=== PATIENT | female | born 1975 | race Caucasian/White ===

== ENCOUNTER 2020-07-10 13:59 | Emergency (ER) | payer BC ==
--- NOTE | 2020-07-10 14:33 | EDM.PDOC ---
ED HPI GENERAL MEDICAL PROBLEM - General Chief Complaint: Upper Extremity Injury/Pain Stated Complaint: RT ARM PAIN Time Seen by Provider: 07/10/20 14:04 Source of Information: Reports: Patient History Limitations: Reports: No Limitations - History of Present Illness INITIAL COMMENTS - FREE TEXT/NARRATIVE: Patient is a 44-year-old female who presents today for right elbow pain. Patient dates for the past few weeks has had this elbow pain that shoots up to her hand and makes her hand tingling and painful. Patient denies any injury to the arm. 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 Patient also noticed that her right arm has been swollen at times. Patient that she saw her PMD for this before in the past and was not sure what he failed because of it. Patient currently denies any chest pain shortness of breath fever chills or other complaints. Right arm Pain Score (Numeric/FACES): 5 - Related Data Allergies Allergy/AdvReac Type Severity Reaction Status Date / Time No Known Allergies Allergy Verified 07/10/20 14:16 Home Meds: Home Meds Bipolar? 07/10/20 [History] Htn? 07/10/20 [History] Past Medical History - Past Health History Medical/Surgical History: Denies Medical/Surgical History Cardiovascular History: Reports: Hypertension - Infectious Disease History Infectious Disease History: Reports: None Social & Family History - Family History Family Medical History: No Pertinent Family History - Caffeine Use Caffeine Use: Reports: None - Recreational Drug Use Recreational Drug Use: No Review of Systems - Review of Systems Review Of Systems: See Below Constitutional: Reports: No Symptoms Eyes: Reports: No Symptoms Ears: Reports: No Symptoms Nose: Reports: No Symptoms Mouth/Throat: Reports: No Symptoms Respiratory: Reports: No Symptoms Cardiovascular: Reports: No Symptoms GI/Abdominal: Reports: No Symptoms Genitourinary: Reports: No Symptoms Musculoskeletal: Reports: Arm Pain Skin: Reports: No Symptoms Neurological: Reports: No Symptoms Psychiatric: Reports: No Symptoms ED EXAM, GENERAL - Physical Exam Exam: See Below Exam Limited By: No Limitations General Appearance: Alert, WD/WN Eye Exam: Bilateral Eye: EOMI, PERRL Respiratory/Chest: No Respiratory Distress, Lungs Clear, Normal Breath Sounds Cardiovascular: Normal Peripheral Pulses, Regular Rate, Rhythm GI/Abdominal: Normal Bowel Sounds, Soft, Non-Tender Extremities: Normal Inspection, Normal Range of Motion. No: Non-Tender (tenderness to medial condyle ) Neurological: Alert, Oriented Course - Vital Signs Last Recorded V/S: Last Vital Signs Temp 97.3 F 07/10/20 14:16 Pulse 103 H 07/10/20 14:16 Resp 16 07/10/20 14:16 BP 184/115 H 07/10/20 14:16 Pulse Ox 98 07/10/20 14:16 - Orders/Labs/Meds Orders: Active Orders 24 hr Category Date Time Status BASIC METABOLIC PANEL,BMP [CHEM] Stat Lab 07/10/20 14:28 Ordered CBC WITH AUTO DIFF [HEME] Stat Lab 07/10/20 14:28 Ordered - Re-Assessments/Exams Free Text/Narrative Re-Assessment/Exam: 07/10/20 16:02 Patient refused lab work however DVT study is negative as well as x-ray does not show any mass no clear cause was called and the patient right extremity swelling. Patient remained stable vital signs looks well we will discharge patient have a follow-up primary care physician. Departure - Departure Time of Disposition: 16:02 Disposition: Home, Self-Care 01 Condition: Good Clinical Impression: Arm swelling - Discharge Information *PRESCRIPTION DRUG MONITORING PROGRAM REVIEWED*: Not Applicable *COPY OF PRESCRIPTION DRUG MONITORING REPORT IN PATIENT LE: Not Applicable Instructions: Pain Medicine Instructions, [id number] Referrals: PCP,None [Primary Care Provider] - Forms: ED Department Discharge Additional Instructions: The following information is given to patients seen in the emergency department who are being discharged to home. This information is to outline your options for follow-up care. We provide all patients seen in our emergency department with a follow-up referral. The need for follow-up, as well as the timing and circumstances, are variable depending upon the specifics of your emergency department visit. If you don't have a primary care physician on staff, we will provide you with a referral. We always advise you to contact your personal physician following an emergency department visit to inform them of the circumstance of the visit and for follow-up with them and/or the need for any referrals to a consulting sp ecialist. The emergency department will also refer you to a specialist when appropriate. This referral assures that you have the opportunity for follow-up care with a specialist. All of these measure are taken in an effort to provide you with optimal care, which includes your follow-up. Under all circumstances we always encourage you to contact your private physician who remains a resource for coordinating your care. When calling for follow-up care, please make the office aware that this follow-up is from your recent emergency room visit. If for any reason you are refused follow-up, please contact the [facility] Emergency Department at and asked to speak to the emergency department charge nurse. Please follow up with your primary care physician. If you do not have a primary care physician, see below: [facility] [address] [place] [id number] [address] [facility] [address] [place] [address] You were seen today for swelling to your right arm we did a study looking for clot that did not show any clots we also did x-rays not show any fractures or cause of your pain and swelling to your arm at this time you are stable. Vital signs we recommend you follow-up with your primary care physician if you have any other complaints please return to the ED immediately. Sepsis Event Note (ED) - Evaluation Sepsis Screening Result: No Definite Risk - Focused Exam Vital Signs: Vital Signs Temp Pulse Resp BP Pulse Ox 07/10/20 14:16 97.3 F 103 H 16 184/115 H 98 - My Orders Last 24 Hours: My Active Orders 07/10/20 14:28 BASIC METABOLIC PANEL,BMP [CHEM] Stat CBC WITH AUTO DIFF [HEME] Stat - Assessment/Plan Last 24 Hours: My Active Orders 07/10/20 14:28 BASIC METABOLIC PANEL,BMP [CHEM] Stat CBC WITH AUTO DIFF [HEME] Stat Plan: Patient is a 44-year-old female presents today for right arm swelling and pain. Unclear cause will obtain x-ray and ultrasound rule out DVT.
--- NOTE | 2020-07-10 15:46 | CR ---
Indication: Right elbow pain with radiation down arm Technique: Three views right elbow Comparison: None Findings: Bones: Alignment is normal. No fractures or bone lesions. Joint spaces: Unremarkable. Soft tissues: Unremarkable. Impression: Negative. Dictated by Rocio Zabala MD @ Jul 10 2020 3:43PM Signed by Dr. Rocio Zabala @ Jul 10 2020 3:45PM
--- NOTE | 2020-07-10 15:48 | US ---
CLINICAL HISTORY: 44-year-old with right upper extremity pain and swelling. TECHNIQUE: Grayscale, color Doppler and compression sonography of the deep venous system of the right upper extremity was performed. COMPARISON: None available FINDINGS: The right internal jugular, axillary and paired brachial veins are patent with color flow, compressibility, and respiratory variation. The right subclavian vein is patent with color flow and respiratory variation. There is no intraluminal echogenic material within these veins to suggest thrombus. The basilic and cephalic veins are patent and compressible. IMPRESSION: No sonographic evidence for deep or superficial venous thrombosis within the right upper extremity. Dictated by Phil Vásquez MD @ Jul 10 2020 3:44PM Signed by Dr. Phil Vásquez @ Jul 10 2020 3:46PM
--- NOTE | 2020-07-10 15:48 | CR ---
INDICATION: Left-sided swelling. TECHNIQUE: PA and lateral. COMPARISON: None. FINDINGS: Shallow inspiration with subsegmental atelectasis or scarring in both lung bases. No airspace infiltrate. No pleural effusion. Pulmonary venous congestion. Heart size normal. No significant bony abnormality. IMPRESSION: 1. Shallow inspiration with subsegmental atelectasis or scarring in both bases. 2. Pulmonary venous congestion. Dictated by Salvador Uribe MD @ Jul 10 2020 3:42PM Signed by Dr. Salvador Uribe @ Jul 10 2020 3:45PM
[2020-07-10 16:27] VITALS: BP 180/105; PULSE 93
== END 2020-07-10 16:27 | disposition home or self-care (01) ==
LOC: MW.ED 13:59
DX: R22.31 Localized swelling, mass and lump, right upper limb (principal); I10 Essential (primary) hypertension
CPT/HCPCS: 71046; 71046-26; 73080-26-RT; 73080-RT; 93971-26-RT; 93971-RT; 99284-25

== ENCOUNTER 2020-11-30 17:29 | Emergency (ER) | payer BC ==
[2020-11-30 17:48] VITALS: BP 189/106; PULSE 95
[2020-11-30] MEDS ORDERED: Acetaminophen/oxyCODONE 325-5 MG Tab PO ONE (18:34)
[2020-11-30] MEDS ORDERED: Dexamethasone 10 MG/ML SDV IM STA (18:34)
--- NOTE | 2020-11-30 18:35 | EDM.PDOC ---
ED HPI GENERAL MEDICAL PROBLEM - General Chief Complaint: Upper Extremity Injury/Pain Stated Complaint: RT ARM PAIN Time Seen by Provider: 11/30/20 18:23 Source of Information: Reports: Patient History Limitations: Reports: No Limitations - History of Present Illness INITIAL COMMENTS - FREE TEXT/NARRATIVE: 45-year-old female no relevant past medical history presents for 2 months of worsening pain in her right elbow radiating down the arm into her right fifth and fourth digits. Symptoms are waxing and waning over the last 2 months and worsening over the last day. No history of injury to the area. "It feels like I hit my funny bone all the time". Right Elbow Pain Score (Numeric/FACES): 8 - Related Data Allergies Allergy/AdvReac Type Severity Reaction Status Date / Time No Known Allergies Allergy Verified 07/10/20 14:16 Home Meds: Home Meds Bipolar? 07/10/20 [History] Htn? 07/10/20 [History] HCTZ/Triamterene [Dyazide 25-37.5 MG] 11/30/20 [History] Past Medical History - Past Health History Medical/Surgical History: Denies Medical/Surgical History Cardiovascular History: Reports: Hypertension - Infectious Disease History Infectious Disease History: Reports: None Social & Family History - Family History Family Medical History: No Pertinent Family History - Caffeine Use Caffeine Use: Reports: None Review of Systems - Review of Systems Review Of Systems: Comprehensive ROS is negative, except as noted in HPI. ED EXAM, GENERAL - Physical Exam Exam: See Below Exam Limited By: No Limitations General Appearance: Alert, WD/WN, No Apparent Distress Throat/Mouth: Normal Voice, No Airway Compromise Head: Atraumatic, Normocephalic Neck: Normal Inspection Respiratory/Chest: No Respiratory Distress, No Accessory Muscle Use Cardiovascular: Normal Peripheral Pulses, Regular Rate, Rhythm Extremities: Other (+tinnel's sign R elbow) Neurological: Alert, Normal Cognition, Normal Gait Psychiatric: Normal Affect, Normal Mood Skin Exam: Warm, Dry, Intact, Normal Color Course - Vital Signs Last Recorded V/S: Last Vital Signs Temp 97 F 11/30/20 17:36 Pulse 95 11/30/20 17:36 Resp 18 11/30/20 17:36 BP 189/106 H 11/30/20 17:36 Pulse Ox 96 11/30/20 17:36 - Orders/Labs/Meds Meds: Medications Discontinued Medications Generic Name Dose Route Start Last Admin Trade Name Alicia PRN Reason Stop Dose Admin Dexamethasone 6 mg 11/30/20 18:34 Dexamethasone 10 Mg/Ml Sdv IM 11/30/20 18:35 STAT STA Oxycodone/Acetaminophen 1 tab 11/30/20 18:34 Acetaminophen/Oxycodone 325-5 Mg Tab PO 11/30/20 18:35 ONETIME ONE - Re-Assessments/Exams Free Text/Narrative Re-Assessment/Exam: 11/30/20 18:38 Patient symptoms are suggestive of cubital tunnel syndrome. Will give anti- inflammatory and pain medication. Will refer to orthopedics for further work- up. Departure - Departure Time of Disposition: 18:34 Disposition: Home, Self-Care 01 Condition: Good Clinical Impression: Cubital tunnel syndrome on right - Discharge Information Instructions: Cubital Tunnel Syndrome Referrals: PCP,None [Primary Care Provider] - Forms: ED Department Discharge Additional Instructions: Please follow-up with orthopedics, you have been placed on a follow-up list how ever if you want you can call below and make an appointment as well. [facility] [address], [address] [place] [address] The following information is given to patients seen in the emergency department who are being discharged to home. This information is to outline your options for follow-up care. We provide all patients seen in our emergency department with a follow-up referral. The need for follow-up, as well as the timing and circumstances, are variable depending upon the specifics of your emergency department visit. If you don't have a primary care physician on staff, we will provide you with a referral. We always advise you to contact your personal physician following an emergency department visit to inform them of the circumstance of the visit and for follow-up with them and/or the need for any referrals to a consulting specialist. The emergency department will also refer you to a specialist when appropriate. This referral assures that you have the opportunity for follow-up care with a specialist. All of these measure are taken in an effort to provide you with optimal care, which includes your follow-up. Under all circumstances we always encourage you to contact your private physician who remains a resource for coordinating your care. When calling for follow-up care, please make the office aware that this follow-up is from your recent emergency room visit. If for any reason you are refused follow-up, please contact the [facility] Emergency Department at and asked to speak to the emergency department charge nurse. Please follow up with your primary care physician. If you do not have a primary care physician, see below: [facility] [address] [place] [phone] [facility] [address] [place] [address] [facility] [address] [address] Sepsis Event Note (ED) - Focused Exam Vital Signs: Vital Signs Temp Pulse Resp BP Pulse Ox 11/30/20 17:36 97 F 95 18 189/106 H 96
== END 2020-11-30 18:48 | disposition home or self-care (01) ==
LOC: MW.ED 17:29
DX: G56.21 Lesion of ulnar nerve, right upper limb (principal); I10 Essential (primary) hypertension
CPT/HCPCS: 96372; 99283; A9270; J1100

== ENCOUNTER 2020-12-04 08:03 | Emergency (ER) | payer BC ==
[2020-12-04] MEDS ORDERED: Acetaminophen/oxyCODONE 325-5 MG Tab PO ONE (08:07)
[2020-12-04] MEDS ORDERED: Dexamethasone 10 MG/ML SDV IM STA (08:07)
--- NOTE | 2020-12-04 08:13 | EDM.PDOC ---
ED HPI GENERAL MEDICAL PROBLEM - General Stated Complaint: cubital tunnel syndroms Time Seen by Provider: 12/04/20 08:07 Source of Information: Reports: Patient History Limitations: Reports: No Limitations - History of Present Illness INITIAL COMMENTS - FREE TEXT/NARRATIVE: 45F PMHx R elbow pain presumptive diagnosis cubital tunnel syndrome presents for RUE pain. Patient was seen a few days prior for similar symptoms. She noted improvement after analgesia and decadron but symptoms have returned. She was placed on orthopedic f/u list. Patient noted a lot of relief for first 3 days after decadron injection but now is having worsening symptoms. - Related Data Allergies Allergy/AdvReac Type Severity Reaction Status Date / Time No Known Allergies Allergy Verified 07/10/20 14:16 Home Meds: Home Meds Bipolar? 07/10/20 [History] Htn? 07/10/20 [History] HCTZ/Triamterene [Dyazide 25-37.5 MG] 11/30/20 [History] Ibuprofen [Motrin] 600 mg PO Q6H PRN #20 tab 11/30/20 [Rx] Acetaminophen/oxyCODONE [Percocet 325-5 MG] 1 each PO Q4H PRN #18 tab 12/04/20 [Rx] predniSONE 40 mg PO DAILY 5 Days #10 tab 12/04/20 [Rx] Past Medical History - Past Health History Medical/Surgical History: Denies Medical/Surgical History Cardiovascular History: Reports: Hypertension - Infectious Disease History Infectious Disease History: Reports: None Social & Family History - Family History Family Medical History: No Pertinent Family History - Caffeine Use Caffeine Use: Reports: None ED ROS GENERAL - Review of Systems Review Of Systems: Comprehensive ROS is negative, except as noted in HPI. ED EXAM, GENERAL - Physical Exam Exam: See Below Exam Limited By: No Limitations General Appearance: Alert, WD/WN, No Apparent Distress Ears: Hearing Grossly Normal Throat/Mouth: Normal Voice, No Airway Compromise Head: Atraumatic, Normocephalic Neck: Normal Inspection Respiratory/Chest: No Respiratory Distress, Lungs Clear, Normal Breath Sounds, No Accessory Muscle Use Cardiovascular: Normal Peripheral Pulses, Regular Rate, Rhythm Extremities: Normal Inspection, Other (positive R elbow tinnel's sign consistent with cubital tunnel syndrome) Neurological: Alert, Normal Cognition, Normal Gait Psychiatric: Normal Affect, Normal Mood Course - Orders/Labs/Meds Meds: Medications Discontinued Medications Generic Name Dose Route Start Last Admin Trade Name Teodoroq PRN Reason Stop Dose Admin Dexamethasone 10 mg 12/04/20 08:07 Dexamethasone 10 Mg/Ml Sdv IM 12/04/20 08:08 STAT STA Oxycodone/Acetaminophen 2 tab 12/04/20 08:07 Acetaminophen/Oxycodone 325-5 Mg Tab PO 12/04/20 08:08 ONETIME ONE - Re-Assessments/Exams Free Text/Narrative Re-Assessment/Exam: 12/04/20 08:12 Will give decadron and percocet for pain; will d/c with short course of analgesi a, prednisone, and orthopedic f/u Departure - Departure Time of Disposition: 08:17 Disposition: Home, Self-Care 01 Condition: Good Clinical Impression: Cubital tunnel syndrome on right - Discharge Information Prescriptions: Acetaminophen/oxyCODONE [Percocet 325-5 MG] 1 each PO Q4H PRN #18 tab PRN Reason: Pain predniSONE 40 mg PO DAILY 5 Days #10 tab Instructions: Cubital Tunnel Syndrome Referrals: PCP,None [Primary Care Provider] - Additional Instructions: Please follow up with orthopedic physician for further testing and definitive diagnosis. [facility] [address], [address] [place] [address] The following information is given to patients seen in the emergency department who are being discharged to home. This information is to outline your options for follow-up care. We provide all patients seen in our emergency department with a follow-up referral. The need for follow-up, as well as the timing and circumstances, are variable depending upon the specifics of your emergency department visit. If you don't have a primary care physician on staff, we will provide you with a referral. We always advise you to contact your personal physician following an emergency department visit to inform them of the circumstance of the visit and for follow-up with them and/or the need for any referrals to a consulting specialist. The emergency department will also refer you to a specialist when appropriate. This referral assures that you have the opportunity for follow-up care with a specialist. All of these measure are taken in an effort to provide you with optimal care, which includes your follow-up. Under all circumstances we always encourage you to contact your private physician who remains a resource for coordinating your care. When calling for follow-up care, please make the office aware that this follow-up is from your recent emergency room visit. If for any reason you are refused follow-up, please contact the [facility] Emergency Department at and asked to speak to the emergency department charge nurse. Please follow up with your primary care physician. If you do not have a primary care physician, see below: [facility] [address] [place] [id number] [facility] [address] [place] [phone] [facility] [address] [place] [id number]
[2020-12-04 08:53] VITALS: BP 115/74; PULSE 85
== END 2020-12-04 08:40 | disposition home or self-care (01) ==
LOC: MW.ED 08:03
DX: G56.21 Lesion of ulnar nerve, right upper limb (principal); I10 Essential (primary) hypertension
CPT/HCPCS: 96372; 99283; A9270; J1100

== ENCOUNTER 2021-02-20 23:28 | Emergency (ER) | payer BC ==
[2021-02-20] MEDS ORDERED: Sodium Chloride 0.9% 10 ML Syringe FLUSH PRN (23:59)
[2021-02-20] MEDS ORDERED: Sodium Chloride 0.9% 2.5 ML Syringe FLUSH PRN (23:59)
[2021-02-21] MEDS ORDERED: Ketorolac 30 MG/ML SDV IVPUSH ONE (00:12)
[2021-02-21] MEDS ORDERED: Ondansetron 4 MG/2 ML SDV IVPUSH ONE (00:12)
[2021-02-21] MEDS ORDERED: Sodium Chloride 0.9% 1,000 ML IV SCH (00:15)
--- NOTE | 2021-02-21 00:18 | EDM.PDOC ---
ED HPI GENERAL MEDICAL PROBLEM - General Chief Complaint: Abdominal Pain Stated Complaint: ABDOMINAL PAIN Time Seen by Provider: 02/20/21 23:33 - History of Present Illness INITIAL COMMENTS - FREE TEXT/NARRATIVE: History of present illness: [] Patient reports abdominal pain in the right upper quadrant and hypogastrium as well as the epigastrium. It is constant and severe. Nothing makes it better or worse. He has had it for 2 or more days. At the onset about 2 or 3 days ago she had facial swelling and ankle edema. She also says her abdomen is bigger than usual. Her bowels however working. She is not vomiting. Her ap petite is diminished. She does not have fever chills or other symptoms. She is never felt like this before. She has had shingles in the past and does not feel like this is the same. Review of systems: As per history of present illness and below otherwise all systems reviewed and negative. Past medical history: As per history of present illness and as reviewed below otherwise noncontributory. Surgical history: As per history of present illness and as reviewed below otherwise noncontributory. Social history: No reported history of drug or alcohol abuse. Family history: As per history of present illness and as reviewed below otherwise noncontributory. Physical exam: Constitutional - well developed, well-nourished and in no acute distress HEENT -patient has a picture from 2 days ago and at that time her face was significantly swollen. This is resolved at this point. Normocephalic, no evidence of trauma - external nose and mouth normal - no mass in neck and no JVD - mucosae moist EYES - full EOM, PERRL, no icterus - no evidence of inflammation, injection, or drainage Respiratory - no respiratory distress, equal bilateral expansion, lungs clear to auscultation and no abnormal lung sounds Cardiovascular - Regular Rhythm with S1 and S2 appreciated and no murmur, gallop or rub. GI -tender diffusely but mostly in the epigastrium and right upper quadrant. Abdomen soft without distension or organomegaly - normal bowel sounds - no guard or rebound Musculoskeletal patient has a picture from 2 days ago and had significant ankle edema at that time. This is apparently resolved-no gross deformity of long bones or joints - no tenderness, swelling or edema Neurologic - Alert and oriented times four - CN II-XII grossly intact - motor sensory and coordination symmetrically normal Psychiatric - appropriate mood and affect with normal thought content Hematologic - No petechiae or purpura - mucosa appropriate color and sclera not pale - normal nail bed color and refill Integument - no rash or evidence of trauma - normal turgor Diagnostics: [] Therapeutics: [] Impression: [] Plan: [] Definitive disposition and diagnosis as appropriate pending reevaluation and review of above. abdomen Pain Score (Numeric/FACES): 7 - Related Data Allergies Allergy/AdvReac Type Severity Reaction Status Date / Time No Known Allergies Allergy Verified 02/20/21 23:51 Home Meds: Home Meds Ondansetron [Zofran ODT] 4 mg PO Q6H PRN #8 tab.dis 02/21/21 [Rx] Past Medical History - Past Health History Medical/Surgical History: Denies Medical/Surgical History Cardiovascular History: Reports: Hypertension Other [employer] History: has had her tubes tied - Infectious Disease History Infectious Disease History: Reports: Chicken Pox, Shingles Social & Family History - Family History Family Medical History: No Pertinent Family History - Tobacco Use Tobacco Use Status *Q: Current Every Day Tobacco User Years of Tobacco use: 20 Packs/Tins Daily: 1 Second Hand Smoke Exposure: No - Caffeine Use Caffeine Use: Reports: Soda - Recreational Drug Use Recreational Drug Use: No ED ROS GENERAL - Review of Systems Review Of Systems: Comprehensive ROS is negative, except as noted in HPI. ED EXAM, GENERAL - Physical Exam Exam: See Below Free Text/Narrative:: My physical exam is in the HPI Course - Vital Signs Last Recorded V/S: Last Vital Signs Temp 36.6 C 02/20/21 23:54 Pulse 115 H 02/20/21 23:54 Resp 18 02/20/21 23:54 BP 165/117 H 02/20/21 23:54 Pulse Ox 98 02/20/21 23:54 - Orders/Labs/Meds Orders: Active Orders 24 hr Category Date Time Status Chest 1V Frontal [CR] Stat Exams 02/20/21 23:59 Stop Req Sodium Chloride 0.9% [Normal Saline] 1,000 ml Med 02/21/21 00:15 Active IV ASDIRECTED Sodium Chloride 0.9% [Saline Flush] Med 02/20/21 23:59 Active 10 ml FLUSH ASDIRECTED PRN Sodium Chloride 0.9% [Saline Flush] Med 02/20/21 23:59 Active 2.5 ml FLUSH ASDIRECTED PRN Saline Lock Insert [OM.PC] Stat Oth 02/20/21 23:59 Ordered Medication Orders Sodium Chloride (Normal Saline) 1,000 mls @ 100 mls/hr IV ASDIRECTED MARIN Last Admin: 02/21/21 00:26 Dose: 100 mls/hr Documented by: PATITO Sodium Chloride (Sodium Chloride 0.9% 10 Ml Syringe) 10 ml FLUSH ASDIRECTED PRN PRN Reason: Keep Vein Open Last Admin: 02/21/21 00:21 Dose: 10 ml Documented by: PATITO Sodium Chloride (Sodium Chloride 0.9% 2.5 Ml Syringe) 2.5 ml FLUSH ASDIRECTED PRN PRN Reason: Keep Vein Open Last Admin: 02/21/21 00:20 Dose: 2.5 ml Documented by: PATITO Labs: Laboratory Tests 02/21/21 02/21/21 02/21/21 Range/Units 00:22 00:22 00:22 WBC 7.13 (4.0-11.0) K/uL RBC 4.80 (4.30-5.90) M/uL Hgb 12.9 (12.0-16.0) g/dL Hct 39.7 (36.0-46.0) % MCV 82.7 (80.0-98.0) fL MCH 26.9 L (27.0-32.0) pg MCHC 32.5 (31.0-37.0) g/dL RDW Std Deviation 45.2 (28.0-62.0) fl RDW Coeff of Reji 15 (11.0-15.0) % Plt Count 381 (150-400) K/uL MPV 10.20 (7.40-12.00) fL Neut % (Auto) 66.7 (48.0-80.0) % Lymph % (Auto) 17.5 (16.0-40.0) % [facility] % (Auto) 13.9 (0.0-15.0) % Eos % (Auto) 1.5 (0.0-7.0) % Baso % (Auto) 0.4 (0.0-1.5) % Neut # (Auto) 4.8 (1.4-5.7) K/uL Lymph # (Auto) 1.3 (0.6-2.4) K/uL [facility] # (Auto) 1.0 H (0.0-0.8) K/uL Eos # (Auto) 0.1 (0.0-0.7) K/uL Baso # (Auto) 0.0 (0.0-0.1) K/uL Sodium 143 (136-145) mmol/L Potassium 3.5 (3.5-5.1) mmol/L Chloride 108 H (98-107) mmol/L Carbon Dioxide 24.7 (21.0-32.0) mmol/L BUN 15 (7.0-18.0) mg/dL Creatinine 1.0 (0.6-1.0) mg/dL Est Cr Clr Drug Dosing 65.27 mL/min Estimated GFR (MDRD) > 60.0 ml/min Glucose 122 H (74-106) mg/dL Calcium 9.0 (8.5-10.1) mg/dL Total Bilirubin 0.5 (0.2-1.0) mg/dL AST 21 (15-37) IU/L ALT 18 (14-63) IU/L Alkaline Phosphatase 89 (46-116) U/L B-Natriuretic Peptide 22 (<100) PG/ML Total Protein 7.6 (6.4-8.2) g/dL Albumin 3.6 (3.4-5.0) g/dL Globulin 4.0 (2.6-4.0) g/dL Albumin/Globulin Ratio 0.9 (0.9-1.6) Lipase 71 L (73-393) U/L HCG, Qual (NEG) Urine Color Urine Appearance Urine pH (5.0-8.0) Ur Specific [place] (1.001-1.035) Urine Protein (NEGATIVE) mg/dL Urine Glucose (UA) (NEGATIVE) mg/dL Urine Ketones (NEGATIVE) mg/dL Urine Occult Blood (NEGATIVE) Urine Nitrite (NEGATIVE) Urine Bilirubin (NEGATIVE) Urine Urobilinogen (<2.0) EU/dL Ur Leukocyte Esterase (NEGATIVE) 02/21/21 02/21/21 Range/Units 00:22 01:10 WBC (4.0-11.0) K/uL RBC (4.30-5.90) M/uL Hgb (12.0-16.0) g/dL Hct (36.0-46.0) % MCV (80.0-98.0) fL MCH (27.0-32.0) pg MCHC (31.0-37.0) g/dL RDW Std Deviation (28.0-62.0) fl RDW Coeff of Reji (11.0-15.0) % Plt Count (150-400) K/uL MPV (7.40-12.00) fL Neut % (Auto) (48.0-80.0) % Lymph % (Auto) (16.0-40.0) % [facility] % (Auto) (0.0-15.0) % Eos % (Auto) (0.0-7.0) % Baso % (Auto) (0.0-1.5) % Neut # (Auto) (1.4-5.7) K/uL Lymph # (Auto) (0.6-2.4) K/uL [facility] # (Auto) (0.0-0.8) K/uL Eos # (Auto) (0.0-0.7) K/uL Baso # (Auto) (0.0-0.1) K/uL Sodium (136-145) mmol/L Potassium (3.5-5.1) mmol/L Chloride (98-107) mmol/L Carbon Dioxide (21.0-32.0) mmol/L BUN (7.0-18.0) mg/dL Creatinine (0.6-1.0) mg/dL Est Cr Clr Drug Dosing mL/min Estimated GFR (MDRD) ml/min Glucose (74-106) mg/dL Calcium (8.5-10.1) mg/dL Total Bilirubin (0.2-1.0) mg/dL AST (15-37) IU/L ALT (14-63) IU/L Alkaline Phosphatase (46-116) U/L B-Natriuretic Peptide (<100) PG/ML Total Protein (6.4-8.2) g/dL Albumin (3.4-5.0) g/dL Globulin (2.6-4.0) g/dL Albumin/Globulin Ratio (0.9-1.6) Lipase (73-393) U/L HCG, Qual NEGATIVE (NEG) Urine Color YELLOW Urine Appearance HAZY Urine pH 6.0 (5.0-8.0) Ur Specific [place] >= 1.030 (1.001-1.035) Urine Protein NEGATIVE (NEGATIVE) mg/dL Urine Glucose (UA) NEGATIVE (NEGATIVE) mg/dL Urine Ketones 15 H (NEGATIVE) mg/dL Urine Occult Blood NEGATIVE (NEGATIVE) Urine Nitrite NEGATIVE (NEGATIVE) Urine Bilirubin NEGATIVE (NEGATIVE) Urine Urobilinogen 0.2 (<2.0) EU/dL Ur Leukocyte Esterase NEGATIVE (NEGATIVE) Meds: Medications Generic Name Dose Route Start Last Admin Trade Name Alicia PRN Reason Stop Dose Admin Sodium Chloride 1,000 mls @ 100 mls/hr 02/21/21 00:15 02/21/21 00:26 Normal Saline IV 100 mls/hr ASDIRECTED MARIN Administration Sodium Chloride 10 ml 02/20/21 23:59 02/21/21 00:21 Sodium Chloride 0.9% 10 Ml Syringe FLUSH 10 ml ASDIRECTED PRN Administration Keep Vein Open Sodium Chloride 2.5 ml 02/20/21 23:59 02/21/21 00:20 Sodium Chloride 0.9% 2.5 Ml Syringe FLUSH 2.5 ml ASDIRECTED PRN Administration Keep Vein Open Discontinued Medications Generic Name Dose Route Start Last Admin Trade Name Alicia PRN Reason Stop Dose Admin Ketorolac Tromethamine 15 mg 02/21/21 00:12 02/21/21 00:26 Ketorolac 30 Mg/Ml Sdv IVPUSH 02/21/21 00:13 15 mg ONETIME ONE Administration Ondansetron HCl 4 mg 02/21/21 00:12 02/21/21 00:27 Ondansetron 4 Mg/2 Ml Sdv IVPUSH 02/21/21 00:13 4 mg ONETIME ONE Administration - Re-Assessments/Exams Free Text/Narrative Re-Assessment/Exam: 02/21/21 01:01 Patient has responded well to the pain medicine. She feels like she can give a urine now. Labs do not reveal any cause for her pain. 02/21/21 01:35 Patient feels better. Abdomen soft. Plan nausea medicine, NSAIDs for pain, double her diuretic for a couple of days because her diastolic remains 88 and she was swollen a day or 2 ago. Follow-up primary care clinic Departure - Departure Time of Disposition: 01:35 Disposition: Home, Self-Care 01 Condition: Good Clinical Impression: Abdominal pain, Vomiting, Facial edema, Ankle edema, Hypertension - Discharge Information Instructions: Nausea and Vomiting, Adult, Abdominal Pain, Adult, [id number], Hypertension, Adult Referrals: PCP,None [Primary Care Provider] - Forms: ED Department Discharge Additional Instructions: Double your water pill for 2 days. Follow-up with primary care. Return if worse. Nausea medicine was sent to the [facility]. [facility] - Primary Care [address] [place] [address] [id number] [address] [address] The following information is given to patients seen in the emergency department who are being discharged to home. This information is to outline your options for follow-up care. We provide all patients seen in our emergency department with a follow-up referral. The need for follow-up, as well as the timing and circumstances, are variable depending upon the specifics of your emergency department visit. If you don't have a primary care physician on staff, we will provide you with a referral. We always advise you to contact your personal physician following an emergency department visit to inform them of the circumstance of the visit and for follow-up with them and/or the need for any referrals to a consulting specialist. The emergency department will also refer you to a specialist when appropriate. This referral assures that you have the opportunity for follow-up care with a specialist. All of these measure are taken in an effort to provide you with optimal care, which includes your follow-up. Under all circumstances we always encourage you to contact your private physician who remains a resource for coordinating your care. When calling for follow-up care, please make the office aware that this follow-up is from your recent emergency room visit. If for any reason you are refused follow-up, please contact the [facility] Emergency Department at and asked to speak to the emergency department charge nurse. Sepsis Event Note (ED) - Evaluation Sepsis Screening Result: No Definite Risk - Focused Exam Vital Signs: Vital Signs Temp Pulse Resp BP Pulse Ox 02/20/21 23:54 36.6 C 115 H 18 165/117 H 98 - My Orders Last 24 Hours: My Active Orders 02/20/21 23:59 Chest 1V Frontal [CR] Stat Sodium Chloride 0.9% [Saline Flush] 10 ml FLUSH ASDIRECTED PRN Sodium Chloride 0.9% [Saline Flush] 2.5 ml FLUSH ASDIRECTED PRN Saline Lock Insert [OM.PC] Stat 02/21/21 00:15 Sodium Chloride 0.9% [Normal Saline] 1,000 ml IV ASDIRECTED - Assessment/Plan Last 24 Hours: My Active Orders 02/20/21 23:59 Chest 1V Frontal [CR] Stat Sodium Chloride 0.9% [Saline Flush] 10 ml FLUSH ASDIRECTED PRN Sodium Chloride 0.9% [Saline Flush] 2.5 ml FLUSH ASDIRECTED PRN Saline Lock Insert [OM.PC] Stat 02/21/21 00:15 Sodium Chloride 0.9% [Normal Saline] 1,000 ml IV ASDIRECTED
[2021-02-21 00:52] LABS: BLOOD UREA NITROGEN,BUN 15 mg/dL (7.0-18.0); CARBON DIOXIDE,CO2 24.7 mmol/L (21.0-32.0); CHLORIDE,CL 108 mmol/L (98-107); GLUCOSE RANDOM 122 mg/dL (74-106); LIPASE 71 U/L (73-393); POTASSIUM,K 3.5 mmol/L (3.5-5.1); SODIUM,NA 143 mmol/L (136-145)
[2021-02-21 01:55] VITALS: BP 140/78; PULSE 98
== END 2021-02-21 01:56 | disposition home or self-care (01) ==
LOC: MW.ED 23:28
DX: R10.11 Right upper quadrant pain (principal); R60.0 Localized edema; R11.10 Vomiting, unspecified; I10 Essential (primary) hypertension; Z72.0 Tobacco use
CPT/HCPCS: 36415; 80053; 81003; 83690; 83880; 84703; 85025; 96374; 96375; 99284; J1885; J2405; J7030

== ENCOUNTER 2021-06-15 04:13 | Emergency (ER) | payer BC ==
[2021-06-15 04:27] VITALS: BP 190/105; PULSE 100
[2021-06-15] MEDS ORDERED: Ciprofloxacin/Dexamethasone 0.3-0.1% Otic Susp 7.5 ML Bottle EARLF STA (04:39)
== END 2021-06-15 05:10 | disposition home or self-care (01) ==
LOC: MW.ED 04:13
DX: H60.92 Unspecified otitis externa, left ear (principal); I10 Essential (primary) hypertension
CPT/HCPCS: 99282; A9270; 99283

== ENCOUNTER 2021-06-16 00:44 | Emergency (ER) | payer BC ==
[2021-06-16] MEDS ORDERED: Lidocaine 1% 2 ML ONE (00:49)
[2021-06-16] MEDS ORDERED: Diphtheria,Pertussis(Acell),Tetanus Vaccine 0.5 ML Syringe IM ONE (00:58)
[2021-06-16] MEDS ORDERED: Ketorolac 30 MG/ML SDV IM ONE (00:58)
[2021-06-16] MEDS ORDERED: Cephalexin 500 MG Cap PO STA (00:59)
[2021-06-16 01:01] VITALS: BP 176/112; PULSE 90
[2021-06-16] MEDS ORDERED: Lidocaine 1% PF 2 ML SDV INJECT ONE (01:05)
== END 2021-06-16 01:25 | disposition home or self-care (01) ==
LOC: MW.ED 00:44
DX: S61.5 Open wound of wrist (principal); Z48.02 Encounter for removal of sutures; Z23 Encounter for immunization; I10 Essential (primary) hypertension; W29.8XXD Contact with other powered hand tools and household machinery, subsequent encounter; Y92.002 Bathroom of unspecified non-institutional (private) residence as the place of occurrence of the external cause; Y99.0 Civilian activity done for income or pay
CPT/HCPCS: 90471; 90715; 96372; 99281; A9270; J1885; 99282

== ENCOUNTER 2021-10-17 03:48 | Emergency (ER) | payer BC ==
[2021-10-17] MEDS ORDERED: Labetalol 100 MG Tab PO ONE (04:06)
[2021-10-17 04:34] LABS: CARBON DIOXIDE,CO2 29.7 mmol/L (21.0-32.0)
[2021-10-17 04:50] VITALS: BP 174/105; PULSE 94
== END 2021-10-17 04:40 | disposition home or self-care (01) ==
LOC: MW.ED 03:48
DX: I10 Essential (primary) hypertension (principal); Z79.899 Other long term (current) drug therapy
CPT/HCPCS: 36415; 80048; 84484; 85025; 93005; 99283; A9270; 93010

== ENCOUNTER 2022-01-16 13:41 | Emergency (ER) | payer BC ==
[2022-01-16 14:34] VITALS: BP 165/97; PULSE 80
== END 2022-01-16 16:16 | disposition home or self-care (01) ==
LOC: MW.ED 13:41
DX: S92.515A Nondisplaced fracture of proximal phalanx of left lesser toe(s), initial encounter for closed fracture (principal); I10 Essential (primary) hypertension; F17.210 Nicotine dependence, cigarettes, uncomplicated; W22.8XXA Striking against or struck by other objects, initial encounter
CPT/HCPCS: 73630-26-LT; 73630-LT; 99282; 99283

== ENCOUNTER 2022-01-24 17:11 | Emergency (ER) | payer BC | END 2022-01-24 19:01 | disposition left against medical advice (07) | LOC: MW.ED 17:11 | DX: Z53.21 Procedure and treatment not carried out due to patient leaving prior to being seen by health care provider (principal) ==

== ENCOUNTER 2022-12-29 03:29 | Emergency (ER) | payer BC ==
[2022-12-29] MEDS ORDERED: Acetaminophen 325 MG Tab PO ONE (03:55)
[2022-12-29] MEDS ORDERED: Dexamethasone 10 MG/ML SDV PO ONE (03:55)
[2022-12-29] MEDS ORDERED: Ibuprofen 400 MG Tab PO ONE (03:55)
[2022-12-29] MEDS ORDERED: Lactated Ringers 1,000 ML IV SCH (04:00)
[2022-12-29 04:25] LABS: CORONAVIRUS COVID-19 NAA NEGATIVE (NEGATIVE); INFLUENZA A NAA NEGATIVE (NEGATIVE); INFLUENZA B NAA NEGATIVE (NEGATIVE); RESPIRATORY SYNCYTIAL VIR NAA NEGATIVE (NEGATIVE)
[2022-12-29 04:32] LABS: BASOPHILS PERCENT AUTO 0.6 % (0.0-1.5); EOSINOPHILS ABSOLUTE AUTO 0.4 K/uL (0.0-0.7); EOSINOPHILS PERCENT AUTO 5.6 % (0.0-7.0); HEMATOCRIT 40.3 % (36.0-46.0); HEMOGLOBIN 13.1 g/dL (12.0-16.0); LYMPHOCYTES ABSOLUTE AUTO 0.8 K/uL (0.6-2.4); LYMPHOCYTES PERCENT AUTO 12.3 % (16.0-40.0); MEAN CORPUSCULAR HEMOGLOBIN 27.7 pg (27.0-32.0); MEAN CORPUSCULAR HGB CONC 32.5 g/dL (31.0-37.0); MEAN CORPUSCULAR VOLUME 85.2 fL (80.0-98.0); MONOCYTES ABSOLUTE AUTO 0.6 K/uL (0.0-0.8); MONOCYTES PERCENT AUTO 9.5 % (0.0-15.0); NEUTROPHILS ABSOLUTE AUTO 4.8 K/uL (1.4-5.7); NRBC ABSOLUTE 0 K/uL; PLATELET COUNT,PLT 231 K/uL (150-400); RED BLOOD CELL COUNT 4.73 M/uL (4.30-5.90); WHITE BLOOD CELL COUNT,WBC 6.66 K/uL (4.0-11.0)
[2022-12-29 04:41] LABS: A/G RATIO 0.9 (0.9-1.6); ALBUMIN 3.2 g/dL (3.4-5.0); BILIRUBIN TOTAL 0.2 mg/dL (0.2-1.0); CARBON DIOXIDE,CO2 24.8 mmol/L (21.0-32.0); POTASSIUM,K 4.1 mmol/L (3.5-5.1); PROTEIN TOTAL,TP 6.8 g/dL (6.4-8.2)
[2022-12-29 04:50] LABS: CALCIUM 8.1 mg/dL (8.5-10.1); CREATININE 0.9 mg/dL (0.6-1.0); EST CRCL DRUG DOSING (CG) 71.03 mL/min
[2022-12-29 04:50] LABS: APPEARANCE,URINE CLEAR; BILIRUBIN,URINE NEGATIVE (NEGATIVE); COLOR,URINE YELLOW; GLUCOSE,URINE NEGATIVE (NEGATIVE); KETONES,URINE NEGATIVE (NEGATIVE); LEUKOCYTE ESTERASE,URINE NEGATIVE (NEGATIVE); NITRITE,URINE NEGATIVE (NEGATIVE); OCCULT BLOOD,URINE NEGATIVE (NEGATIVE); PH,URINE 5.5 (5.0-8.0); PROTEIN,URINE NEGATIVE (NEGATIVE); UROBILINOGEN,URINE 0.2 EU/dL (<2.0)
[2022-12-29 04:58] VITALS: BP 183/109; PULSE 77
== END 2022-12-29 05:15 | disposition home or self-care (01) ==
LOC: MW.ED 03:29
DX: B34.9 Viral infection, unspecified (principal); I10 Essential (primary) hypertension; Z20.822 Contact with and (suspected) exposure to COVID-19
CPT/HCPCS: 0241U; 36415; 80053; 81003; 84484; 85025; 93005; 96360; 99283; A9270; J7120; J8540; 93010

== ENCOUNTER 2023-04-21 02:15 | Emergency (ER) | payer BC ==
[2023-04-21] MEDS ORDERED: Amoxicillin/Clavulanate K 875-125 MG Tab PO ONE (02:32)
[2023-04-21 02:50] VITALS: BP 161/78; PULSE 71
== END 2023-04-21 02:50 | disposition home or self-care (01) ==
LOC: MW.ED 02:15
DX: K02.9 Dental caries, unspecified (principal); I10 Essential (primary) hypertension; Z79.899 Other long term (current) drug therapy
CPT/HCPCS: 99283; A9270

== ENCOUNTER 2023-07-10 00:42 | Emergency (ER) | payer BC ==
[2023-07-10 00:51] VITALS: BP 196/123; PULSE 102
[2023-07-10] MEDS ORDERED: Sodium Chloride 0.9% 2.5 ML Syringe FLUSH PRN (01:00)
[2023-07-10] MEDS ORDERED: Sodium Chloride 0.9% 10 ML Syringe FLUSH PRN (01:00)
[2023-07-10] MEDS ORDERED: Iopamidol 755 MG/ML 500 ML Multipack Bottle IVPUSH ONE (01:06)
[2023-07-10] MEDS: Ondansetron 4 MG/2 ML SDV IVPUSH ONE (01:11)
[2023-07-10] MEDS: Morphine 4 MG/ML Syringe IVPUSH ONE (01:11)
[2023-07-10] MEDS: Sodium Chloride 0.9% 1,000 ML IV ONE (01:11)
== END 2023-07-10 01:10 | disposition left against medical advice (07) ==
LOC: MW.ED 00:42
DX: R10.32 Left lower quadrant pain (principal); I10 Essential (primary) hypertension; Z87.442 Personal history of urinary calculi
CPT/HCPCS: 99284